=== PATIENT | female | born 1970 | race Two or more races ===

== ENCOUNTER → 2016-08-11 | Day surgery (SDC) | payer OTHER ==
[~2016-08-11] MED LIST: BUPIVACAINE HCL/PF 0.5% (5MG/ML) 10 ML VIAL ONE; DEXAMETHASONE SOD PHOSPHATE 4 MG/1 ML VIAL ONE; DEXAMETHASONE SOD PHOSPHATE/PF 10 MG/ML SDV ONE; EPINEPHrine/PF 1 MG/1 ML (1:1,000) AMPULE ONE; GLYCOPYRROLATE 0.2 MG/1 ML VIAL ONE; LIDOCAINE HCL 2% (20ML MULTI-DOSE VIAL) NR ONE; MIDAZOLAM HCL 2 MG/2 ML SINGLE DOSE VIAL ONE; NEOSTIGMINE METHYLSULFATE 0.5 MG/ML - 10 ML MDV ONE; PROPOFOL 20 ML ONE; ROCURONIUM BROMIDE 50 MG/5 ML VIAL ONE; ceFAZolin SODIUM 1 GM VIAL ONE
--- NOTE | 2016-08-13 11:34 | PATH ---
Surgical Pathology Report Patient Name: SHABBIR LIVINGSTON [facility]. Rec. #: [id number] /Age/Gender: 1970 (Age: 46) / F Account: [id number] Location: [facility] RADIOLOGY U Taken: 08/11/2016 Received: 08/11/2016 Reported: 08/13/2016 Physicians: Trinidad West M.D. Specimen(s) Received A: BREAST CORE BIOPSY LEFT 3:00, 7-8 CMFN B: BREAST CORE BIOPSY RIGHT 1:00, 9 CMFN Clinical History Suspicious Final Diagnosis A. LEFT BREAST, 3:00, 7-8 CMFN, ULTRASOUND GUIDED NEEDLE CORE BIOPSY: SCLEROSED FIBROADENOMA. B. RIGHT BREAST, 1:00, 9 CMFN, ULTRASOUND GUIDED NEEDLE CORE BIOPSY: WELL DIFFERENTIATED INVASIVE DUCTAL CARCINOMA, MEASURING BETWEEN 0.1 AND 0.2 CM IN LENGTH MEASURED ON A SLIDE. ABUNDANT CLOTTED BLOOD AND DETACHED FRAGMENTS OF EPITHELIUM PRESENT. Results of Estrogen Receptor (ER) and Progesterone Receptor (NV) studies performed on block "B" at [facility] are as follows: ER (clone [id number] mouse monoclonal antibody by [employer]): ~80% nuclear staining with moderate intensity (Positive). NV (clone16 mouse monoclonal antibody by Le[employer]) : ~60% nuclear staining with strong intensity (Positive). Assays for HER-2/bertrand and Ki67 are pending, and a report will follow. Positive and negative controls (internal if applicable) show appropriate results. Formalin fixation and cold ischemic times are within current ASCO/CAP recommendations for ER, NV and Her2 testing. Comment: Immunohistochemical stains on specimen B performed and interpreted at [facility] show the following results: P63 and smooth muscle myosin heavy chain show loss of the myoepithelial cell layer in the area of invasive carcinoma. This case was discussed with ANTONIA Maldonado of Dr. Keita office on August 13, 2016. Electronically Signed Titus Gutierrez M.D. Addendum Reported: 08/14/2016 Addendum Diagnosis Results of Her2 (IHC) & Ki-67 studies performed on block "B" at [place], [place] ([id number]) are as follows: Her2 IHC (EP3 from [employer], formerly known as [id number], using [employer]is Polymer Refine detection kit): 1+ Negative Ki-67: ~10% (Low proliferative index) Positive and negative controls (internal if applicable) show appropriate results. Titus Gutierrez M.D. Gross Description A. Received in formalin labeled "left breast 3:00, 7-8cmfn," are six oneil-yellow, irregular to cylindrical portions of fibroadipose tissue ranging from 0.5-1.3 cm in length and averaging 0.2 cm in diameter. The specimen is submitted in toto in one cassette. B. Received in formalin labeled "right breast 1:00, 9cmfn," is a 2.5 x 2.2 x 0.3 cm aggregate of multiple oneil-yellow, irregular to cylindrical portions of fibroadipose tissue admixed with blood clot. The specimen is submitted in toto in one cassette. Time to formalin fixation: 2 minutes Total formalin fixation time: Approximately 7 hours 08/11/2016
== END | disposition home or self-care (01) ==
LOC: FRADUS-SUR 12:39
PROVIDERS: ATTEND Surgery
PROC: 0HBV3ZX Excision of Bilateral Breast, Percutaneous Approach, Diagnostic (ICD-10-PCS; principal; 2016-08-11)
DX: N63 Unspecified lump in breast (principal); C50.211 Malignant neoplasm of upper-inner quadrant of right female breast; D24.2 Benign neoplasm of left breast
CPT/HCPCS: 19083; 76641-TC-RT; 76642-TC-RT; 87899; 88305-TC; 88341-TC; 88342-TC; A4648; G0204-TC

== ENCOUNTER 2016-09-29 06:26 | Inpatient (IN) | payer OTHER ==
[2016-09-25 13:27] VITALS: BMI 34.5
[2016-09-29] MEDS ORDERED: METHYLENE BLUE 1% 10 MG/1 ML VIAL NR ONE ×2 (09:15→10:15)
[2016-09-29] MEDS ORDERED: ceFAZolin SODIUM 1 GM VIAL IVPB ONE (09:18)
--- NOTE | 2016-09-29 13:40 | OP ---
Operative Note - Note: Operative Date: 09/29/16 Pre-Operative Diagnosis: Right Breast Cancer Operation: Bilateral Breast Staged Reconstruction with Nipple Delay at time of Right Lumpectomy and [place] Node Biopsy Post-Operative Diagnosis: Same as Pre-op Surgeon: J Luis Burciaga Horticulture Instructor: Caroline Duong Anesthesia: General Drains & Tubes with Location: BREANNA Drain x1 Each Side Operative Report Dictated: Yes
[2016-09-29] MEDS ORDERED: oxyCODONE HCL 5 MG TABLET PO PRN (13:45)
[2016-09-29] MEDS ORDERED: ONDANSETRON 4 MG/2 ML VIAL IVPUSH PRN (13:45)
[2016-09-29] MEDS ORDERED: LACTATED RINGERS SOLUTION 1,000 ML IV SCH (13:45)
[2016-09-29] MEDS ORDERED: oxyCODONE HCL 5 MG TABLET ONE (16:16)
[2016-09-29 17:56] VITALS: BP 111/62
[2016-09-29 18:14] VITALS: PULSE 80; TEMP 97.8
--- NOTE | 2016-09-30 11:34 | OP ---
DATE OF OPERATION: 09/29/2016 PREOPERATIVE DIAGNOSIS: Right breast cancer. POSTOPERATIVE DIAGNOSIS: Right breast cancer. PROCEDURE: Right breast wide lumpectomy and sentinel node biopsy and left staged nipple sparing mastectomy. SURGEON: Caroline Streeter MD ANESTHESIA: General and paravertebral block. FORGING PRESS SETTER UP: J Luis Burciaga MD ESTIMATED BLOOD LOSS: 100 mL. DRAINS: None. COMPLICATIONS: None. This was a sterile procedure. INDICATION FOR PROCEDURE: Patient presented with a palpable mass in the upper right breast. She had imaging that noted the main mass as well as 1 slightly medial to this. She also had an abnormality in the left breast, which was biopsied. It was benign. We had a discussion regarding her treatment, and decision was to go ahead with a nipple-sparing mastectomy, but given the ptosis, the plastic surgeon felt that this would have to be a staged mastectomy, and at the time of the first part where anteriorly the breast is taken off the skin I would remove a mass in the upper right breast as well as do a sentinel node biopsy. The procedure was discussed with all of the questions answered. PROCEDURE IN DETAIL: The patient was brought to [facility] in [place] and taken on to nuclear medicine where a technetium and sulfur colloid was injected as an intradermal injection at the right 12 o'clock areolar border by the nuclear reactor technician. She was then brought to the operating room. After paravertebral block bilaterally as well as induction of general anesthesia, both breasts and axilla were prepped and draped in the usual sterile fashion. Then 2.5 mL of Methylene blue dye with 2.5 mL of injectable saline was then injected into the right subaerolar plexus by me in the operating room. The breast was then massaged for 5 minutes. The area was prepped and draped in the usual sterile fashion. A 4-cm incision was made in the right axilla and carried down through the clavipectoral fascia to identify a hot and blue lymph node. This was sent as sentinel lymph node number 1 hot and blue. There was a 2nd sentinel lymph node that was blue but not hot and sent as a sentinel node number 2 blue not hot. There was a 3, which might have been actually blue lymphatic. Had removed that and had no counts; therefore, I sent it as right nonsentinel node. I am not sure there is really a lymph node in it or just fat. Next, there was a 3rd sentinel node lymph node noted that was also blue and hot. There was no other blue dye radioactivity or pathologic appearing lymph nodes in the right axilla; therefore, once hemostasis was assured, the right mastectomy performed through the incision that was marked out by Dr. Burciaga. Superior flaps through the superior incision and inferior flaps through the inferior incision was made with lips of skin left. The nipple was preserved as well. I did take some tissue behind the right nipple and sent it as tissue behind the right nipple for pathologic analysis. I removed the entire mass tagged with a long stitch lateral short stitch superior sent to Pathology for permanent section, I found some grittiness medial to this, so I took a new medial margin with a long stitch lateral short stitch superior. Once the breast was completely mobilized off anteriorly from the skin, I left the breast intact. I did put a stitch in the right breast 12 o'clock location where I felt that the tumor was closest to the skin in case I have to excise skin in the future. Next, gloves and instruments were changed, and the left staged mastectomy was performed. Again, the same incision marked out by Dr. Burciaga was incised sharply, and superior flaps were raised through the superior incision and the inferior flaps through the inferior incision to preserve the nipple areolar complex. I left an ellipse of skin over the entire breast wounds anteriorly. The breast was taken off the skin. It was then left intact on the pectoralis muscle. The patient was then left with Dr. Burciaga to finish his part of the operation. At the end of the procedure, she was left with Dr. Burciaga to close up the incisions. She tolerated the procedure well. CAROLINE STREETER M.D. [id number]
--- NOTE | 2016-09-30 14:05 | OP ---
DATE OF OPERATION: 09/29/2016 PREOPERATIVE DIAGNOSIS: Right breast cancer. POSTOPERATIVE DIAGNOSIS: Right breast cancer. PROCEDURE PERFORMED: Bilateral breast staged reconstruction with nipple delay at time of right lumpectomy/sentinel node biopsy. SURGEON: J Luis Patrick MD MANAGER CHANNEL: Caroline Duong MD ANESTHESIA: General. BRIEF HISTORY: The patient is a 46-year-old female who has a right upper pole breast mass. The patient is a D-cup breast and is moderately ptotic and traditionally not a candidate for a nipple-sparing mastectomy. The patient is insistent about attempting a nipple-sparing technique, so it was elected to perform a nipple-delayed procedure through an upper pole keyhole pattern. This delayed procedure will hopefully increase the vascularity to the nipple-areolar complex and will allow a nipple-sparing mastectomy to be performed more safely after the delayed period. PROCEDURE: The patient was on the operating room table in the supine position and anesthesia was administered by the anesthesiologist. The right sentinel node dissection was performed by Dr. Duong and dictated separately. A keyhole pattern was designed with the patient in the standing position several days prior to surgery. This pattern was now used as a guide for surgery. The incisions in the upper pole of the breast were made as marked, including a semicircular incision about the upper pole of the right areola. The skin paddle was left attached to skin and the skin flap was freed from the underlying breast tissue both superior and inferior to the skin paddle. The inferior skin flap included the nipple-areolar complex which essentially makes this dissection the anterior portion of the mastectomy. The inferior portion of the areola remained attached to the inferior skin flap. Dr. Duong performed a lumpectomy by removing the tumor area in the superior pole and this area was closed with 3-0 Biosyn suture internally. A Feliciano-Alvarez drain was then inserted underneath the skin flap and a layered closure was performed, reclosing the skin paddle as designed. Layered closure consisted of a deep layer of 3-0 Biosyn suture in an interrupted buried fashion and an intradermal layer of 4-0 Prolene was used for skin. Several 4-0 and 5-0 nylon sutures were used to further reinforce the skin closure. A similar procedure was performed on the left side, although there was no biopsy performed and no sentinel node biopsy performed. The skin paddle was closed in a similar fashion. A Feliciano-Alvarez drain was used on this side, as well, and the Feliciano-Alvarez drains were sutured with 2-0 silk suture. The right axillary wound was closed in a layered fashion, deep tissues with a number 3-0 Biosyn suture in an interrupted buried fashion and the skin with several 4-0 nylon sutures in simple interrupted fashion. All wounds were then secured with Steri-Strips and sterile dressings were applied and secured with a surgical bra. The patient was then awoken from anesthesia without any difficulty, and taken from the operating room to the recovery room in satisfactory condition, having tolerated the procedure well. J LUIS PATRICK M.D. /[id number]
--- NOTE | 2016-10-01 11:52 | PATH ---
Surgical Pathology Report Patient Name: SHABBIR LIVINGSTON [facility]. Rec. #: [id number] /Age/Gender: 1970 (Age: 46) / F Account: [id number] Location: [facility] Taken: 09/29/2016 Received: 09/29/2016 Reported: 10/01/2016 Physicians: Caroline Duong M.D. Specimen(s) Received A: RIGHT AXILLARY SENTINEL LYMPH NODE #1 B: RIGHT AXILLARY SENTINEL LYMPH NODE #2 C: RIGHT AXILLARY NON-SENTINEL LYMPH NODE D: RIGHT AXILLARY SENTINEL LYMPH NODE #3 E: RIGHT BREAST LUMPECTOMY F: RIGTH BREAST NEW MEDIAL MARGIN G: TISSUE BEHIND RIGHT NIPPLE Clinical History Right breast cancer Final Diagnosis A. SENTINEL LYMPH NODE #1, RIGHT AXILLARY, BIOPSY: ONE OF THREE LYMPH NODES POSITIVE FOR METASTATIC CARCINOMA BY H&E AND AE1/AE3 KERATIN IMMUNOSTAIN (1/3). SIZE OF THE TUMOR DEPOSIT: 1.0 MM (MICROMETASTATIS). EXTRANODAL EXTENSION: NOT IDENTIFIED. B. SENTINEL LYMPH NODE #2, RIGHT AXILLARY, BIOPSY: ONE LYMPH NODE NEGATIVE FOR METASTATIC CARCINOMA BY H&E STAIN (0/1). C. NON-SENTINEL LYMPH NODE, RIGHT AXILLARY, LYMPHADENECTOMY: BENIGN FATTY TISSUE; NO LYMPHOID TISSUE IDENTIFIED. D. SENTINEL LYMPH NODE #3, RIGHT AXILLARY, BIOPSY: ONE LYMPH NODE NEGATIVE FOR METASTATIC CARCINOMA BY H&E STAIN (0/1). E. BREAST, RIGHT, LUMPECTOMY: INVASIVE DUCTAL CARCINOMA, MODERATELY DIFFERENTIATED (LORENE HISTOLOGIC SCORE OF 6: TUBULE FORMATION 2 OF 3, NUCLEAR PLEOMORPHISM 3 OF 3, MITOTIC RATE 1 OF 3). TUMOR FOCALITY AND SIZE: SINGLE FOCUS, 1.7 CM. LOBULAR CARCINOMA IN SITU (LCIS), CLASSICAL TYPE. SURGICAL RESECTION MARGINS: NEGATIVE FOR CARCINOMA, CLOSEST RESECTION MARGIN (DEEP) 0.4 CM AWAY FROM INVASIVE CARCINOMA. ASSOCIATED PRIOR BIOPSY SITE PRESENT. LYMPHOVASCULAR INVASION: IDENTIFIED. SURROUNDING BREAST TISSUE: FIBROCYSTIC CHANGE WITH FOCAL PAPILLARY DUCTAL HYPERPLASIA, ADENOSIS, COLUMNAR CELL CHANGE, DUCT DILATATION AND STROMAL FIBROSIS WITH ASSOCIATED MICROCALCIFICATIONS. PATHOLOGIC STAGING: pT1c pN1(mi)(sn) (ALSO REFER TO CHECKLIST BELOW). RECEPTOR STATUS: REFER TO CHECKLIST BELOW. Comment: Immunohistochemical stain for E-Cadherin performed and interpreted [facility] [place] on block E1 shows invasive carcinoma is strongly positive for E-Cadherin and foci of LCIS staining negatively for E-Cadherin, supporting ductal phenotype in invasive carcinoma and lobular phenotype in LCIS. F. BREAST, RIGHT, NEW MEDIAL MARGIN, EXCISION: LOBULAR CARCINOMA IN SITU (LCIS), CLASSICAL TYPE. COMPLEX SCLEROSING LESION, FOCALLY INVOLVED BY LCIS. INTRADUCTAL PAPILLOMA WITH USUAL DUCTAL HYPERPLASIA. FIBROCYSTIC CHANGES USUAL DUCTAL HYPERPLASIA, ADENOSIS, COLUMNAR CELL CHANGE AND STROMAL FIBROSIS WITH ASSOCIATED MICROCALCIFICATIONS. NEGATIVE FOR INVASIVE CARCINOMA. Comment: Immunohistochemical stain for E-Cadherin performed and interpreted [facility] [place] on block F5 shows foci of LCIS being negative for E-Cadherin supporting lobular phenotype. Immunohistochemical stains for p63 and SMM-HC performed and interpreted at [facility] [place] on block F5 show preserved myoepithelial cells in the complex sclerosing lesion. G. TISSUE BEHIND RIGHT NIPPLE: BENIGN BREAST TISSUE. Comments Breast Invasive Carcinoma: Surgical Pathology Cancer Case Summary Based on AJCC/UICC TNM, 7th edition Procedure _x_ Excision without image-guided localization Lymph Node Sampling _x_ [place] lymph nodes Specimen Laterality _x_ Right Tumor Size: Size of Largest Invasive Carcinoma Greatest dimension of largest focus of invasion over 1 mm: 1.7 cm (17 mm) Tumor Focality _x_ Single focus of invasive carcinoma Macroscopic and Microscopic Extent of Tumor Skin _x_ No skin present Nipple _x_ Not applicable (excisions less than total mastectomy) Skeletal Muscle _x_ No skeletal muscle present Ductal Carcinoma In Situ (DCIS) _x_ No DCIS is present Lobular Carcinoma In Situ (LCIS) _x_ LCIS is present, classical type Histologic Type of Invasive Carcinoma: _x_ Invasive carcinoma of no special type (ductal, not otherwise specified) Histologic Grade: (Sedan Histologic Score) Tubular Differentiation _x_ Score 2 Nuclear Pleomorphism _x_ Score 3 Mitotic Rate _x_ Score 1 Overall Grade _x_ Grade 2: scores of 6 (moderately differentiated) Margins _x_ Margins uninvolved by invasive carcinoma Distance from closest margin: 4.0 mm Specify margin: deep Lymph-Vascular Invasion _x_ Present Lymph Nodes Total number of lymph nodes examined (sentinel and nonsentinel): 5 Number of sentinel lymph nodes examined: 5 Number of lymph nodes with macrometastases (> 2 mm): 0 Number of lymph nodes with micrometastases (>0.2 mm to 2 mm and/or >200cells):1 Number of lymph nodes with isolated tumor cells (=0.2 mm and =200 cells): 0 Size of largest metastatic deposit (if present): 1 mm Extranodal Extension _x_ Not identified Pathologic Staging (pTNM) Primary Tumor (Invasive Carcinoma): pT1c Regional Lymph Nodes (pN): pN1(mi)(sn) Distant Metastasis (pM): not applicable Biomarker Studies Results of ER and NM studies performed on prior biopsy (D1) block B at [facility] [place] are as follows: ER (clone 6F11 mouse monoclonal antibody by [employer]): ~80% nuclear staining with moderate intensity (Positive). NM (clone16 mouse monoclonal antibody by [employer]): ~60% nuclear staining with strong intensity (Positive). Results of Her2 (IHC) & Ki-67 studies performed on prior biopsy (D1, B) at [place], [place] ( [id number]) are as follows: Her2 IHC (EP3 from [employer], formerly known as [id number], using [employer]is Polymer Refine detection kit): 1+ (Negative) Ki67: ~10% (Low proliferation index) Positive and negative controls (internal if applicable) showed appropriate results. Formalin fixation and cold ischemic times were within current ASCO/CAP recommendations for ER, NM and Her2 testing. Electronically Signed Mike Littlejohn M.D. Gross Description A. Received in formalin labeled "right axillary sentinel lymph node #1" are 3 oneil-blue, irregular lymph nodes ranging from 0.4 x 0.3 x 0.3 cm to 1.4 x 1.0 x 0.6 cm. The specimens are bisected and entirely submitted in 3 cassettes as follows: 1-3-one whole bisected lymph node each. B. Received in formalin labeled "right axillary sentinel lymph node #2" is a 0.6 cm in greatest dimension possible lymph node. The specimen is submitted in toto in one cassette. C. Received in formalin labeled "axillary non-sentinel node" is a 1.4 x 1.0 x 0.3 cm aggregate of soft tissue fragments, possibly containing a lymph node. The specimen is entirely submitted in one cassette. D. Received in formalin labeled "axillary sentinel lymph node #3" is a 0.9 x 0.6 x 0.4 cm irregular lymph node with attached fat. The specimen is bisected and entirely submitted in one cassette. E. Received in formalin, labeled "right breast lumpectomy" is a 6.3 x 5.0 x 3.3 cm. oneil-yellow, irregular, portion of fibroadipose tissue. There is no needle localization wire present. There is a short suture marking the superior aspect and a long suture marking the lateral aspect, per the surgeon. There is no skin or nipple present. The specimen is inked as follows: superior and lateral blue; inferior green; medial yellow; anterior red; deep black. The specimen is serially sectioned from superior to inferior. Sectioning reveals a 1.4 x 1.0 x 1.0 cm oneil, indurated mass at 0.6 cm from the anterior margin, 0.6 cm from the deep margin and 0.8 cm from the lateral margin. The remaining margins appear clear of the mass. There is a harper metallic biopsy clip identified within the mass. Filter Press Pumper sections are submitted in 6 cassettes as follows: 1-full face section of mass with anterior and deep margins; 2-mass with lateral margin; 3-mass with deep and lateral margins; 4-medial margin; 5-superior margin; 6-inferior margin. Time to fixation: <1h Total formalin fixation time: ~ 6h F. Received in formalin labeled "right breast new medial margin" is a 6.2 x 4.4 x 2.0 cm irregular portion of fibroadipose tissue with a short suture marking the superior aspect and a long suture marking the lateral aspect of the specimen, per the surgeon. There is no skin present. The specimen is inked as follows: Superior blue; inferior green; anterior and lateral red; medial yellow; deep black. The specimen is serially sectioned from anterior to deep. Sectioning reveals abundant dense, white, focally firm fibrous tissue. Filter Press Pumper sections are submitted in 11 cassettes as follows: 1-7-fibrous tissue sequentially submitted from anterior to deep (each section displays medial and lateral margins); 8-anterior margin; 9-deep margin; 10-superior margin; 11-inferior margin. G. Received in formalin labeled "tissue behind right nipple" are 2 fragments of fibroadipose tissue measuring 0.7 and 1.2 cm in greatest dimension. The specimens are submitted in toto in one cassette. 09/29/201609/29/2016
== END 2016-09-29 18:15 | disposition home or self-care (01) | DRG 363 ==
LOC: JSAMEDAYSX 06:26
PROVIDERS: ADMIT Surgery; ATTEND Surgery
PROC: 0HRV37Z Replacement of Bilateral Breast with Autologous Tissue Substitute, Percutaneous Approach (ICD-10-PCS; 2016-09-29)
PROC: 0HBT0ZZ Excision of Right Breast, Open Approach (ICD-10-PCS; principal; 2016-09-29 09:00)
PROC: 07B50ZX Excision of Right Axillary Lymphatic, Open Approach, Diagnostic (ICD-10-PCS; 2016-09-29 09:00)
PROC: 0HBU0ZZ Excision of Left Breast, Open Approach (ICD-10-PCS; 2016-09-29 09:00)
PROC: 07B60ZX Excision of Left Axillary Lymphatic, Open Approach, Diagnostic (ICD-10-PCS; 2016-09-29 09:00)
DX: C50.811 Malignant neoplasm of overlapping sites of right female breast (principal); C77.3 Secondary and unspecified malignant neoplasm of axilla and upper limb lymph nodes
CPT/HCPCS: 78195-TC; 84703; 88305-TC; 88307-TC; 88341-TC; 94760; A9541

== ENCOUNTER 2017-02-26 06:33 | Day surgery (SDC) | payer OTHER ==
[2017-02-24 08:59] VITALS: BMI 36.0
[2017-02-26] MEDS ORDERED: ROCURONIUM BROMIDE 50 MG/5 ML VIAL ONE (07:36)
[2017-02-26] MEDS ORDERED: ROPIVACAINE HCL 0.5% 30ML VIAL ONE (07:36)
[2017-02-26] MEDS ORDERED: DEXAMETHASONE SOD PHOSPHATE/PF 10 MG/ML SDV ONE (07:36)
[2017-02-26] MEDS ORDERED: fentaNYL CITRATE 250 MCG/5 ML VIAL ONE (07:36)
[2017-02-26] MEDS ORDERED: PROPOFOL 20 ML ONE ×2 (07:36→10:39)
[2017-02-26] MEDS ORDERED: MIDAZOLAM HCL 2 MG/2 ML SINGLE DOSE VIAL ONE ×2 (07:37)
[2017-02-26] MEDS ORDERED: LIDOCAINE HCL 1%, 10 MG/ML (20ML VIAL) ONE (07:54)
[2017-02-26] MEDS ORDERED: ONDANSETRON 4 MG/2 ML VIAL ONE ×2 (08:40→12:40)
[2017-02-26] MEDS ORDERED: ceFAZolin SODIUM 1 GM VIAL ONE ×2 (08:40→12:40)
[2017-02-26] MEDS ORDERED: ceFAZolin SODIUM 1 GM VIAL IVPB ONE (08:44)
--- NOTE | 2017-02-26 12:47 | OP ---
DATE OF OPERATION: 02/26/2017 PREOPERATIVE DIAGNOSIS: Right breast cancer. POSTOPERATIVE DIAGNOSIS: Right breast cancer. PROCEDURE: Bilateral total nipple-sparing mastectomy. SURGEON: Caroline Streeter MD GARDENER FLORIST: J Luis Burciaga MD ESTIMATED BLOOD LOSS: 100 mL. DRAINS: None. COMPLICATIONS: None. This was a sterile procedure. INDICATIONS: Patient had a staged mastectomy with an anterior margin of the mastectomy bilaterally was removed from the skin. The tumor in the right upper outer right breast was removed as a lumpectomy as well as a sentinel node that was performed. This showed adequate margins and the lymph nodes were negative. The patient now comes back for a completion bilateral mastectomy with reconstruction. PROCEDURE IN DETAIL: Patient was brought to [facility] in [place] and taken into the operating room, and after induction of general anesthesia and IV antibiotics, both breasts were prepped and draped in the usual sterile fashion. First, the right mastectomy was performed. A 10-blade was used to make an incision just beyond a hypertrophic scar on the right. Superior, inferior, medial, and lateral flaps were raised, the nipple was preserved, and the breast was reflected off the pectoralis muscle, tagged with a long stitch at the lateral edge of skin and a short stitch at the nipple end of mastectomy. This was sent to Pathology for permanent section. Next a left mastectomy was performed. An incision was made to include the hypertrophic scar in the skin paddle in the center of the left breast, and superior, inferior, medial, and lateral flaps were raised, and the breast was reflected off the pectoralis muscle, the nipple was again preserved. This was tagged with a long stitch at the lateral edge of skin and a short stitch at the nipple end and sent to Pathology for permanent section. Hemostasis was assured with electrocautery. She tolerated the procedure well. The patient was then left with Dr. Burciaga to finish the reconstruction part of the procedure. CAROLINE STREETER M.D. [id number]
--- NOTE | 2017-02-26 13:09 | OP ---
Operative Note - Note: Operative Date: 02/26/17 Pre-Operative Diagnosis: Acquired Absence of Breasts s/p Bilateral Nipple- Sparing Mastectomies Operation: Bilateral Immediate Breast Reconstruction with Placement of Subglandular Implants Wrapped in Alloderm. Implants: [place] Memoryshape Gel Medium Height High Profile 555cc Post-Operative Diagnosis: Same as Pre-op Surgeon: J Luis Burciaga Manager Industrial: Matilde Rodriguez Anesthesiologist/DYER HELPER: Price Anne Anesthesia: General Drains & Tubes with Location: BREANNA Drain 19F x1 each side Fluid Volume Replaced (mls): 1,500 Operative Report Dictated: Yes
--- NOTE | 2017-02-26 13:13 | SURG ---
Surgery Dining Room Host Note Dining Room Host: Matilde Rodriguez PA-C Date of Service: 02/26/17 Diagnosis: s/p bilateral nipple sparing mastectomy Procedure: Bilateral immediate reconstruction with placement of subglandular implants with alloderm. I was present for the entirety of the operative procedure. For further detail, please refer to operative report. Visit type - Case Type Case Type: Scheduled Admission - Emergency Emergency Visit: No - New patient This patient is new to me today: Yes Date on this admission: 02/26/17
[2017-02-26] MEDS ORDERED: ONDANSETRON 4 MG/2 ML VIAL IVPUSH PRN (13:17)
--- NOTE | 2017-02-26 13:59 | OP ---
DATE OF OPERATION: 02/26/2017 PREOPERATIVE DIAGNOSIS: Acquired absence of breasts, status post bilateral nipple-sparing mastectomies. POSTOPERATIVE DIAGNOSIS: Acquired absence of breasts, status post bilateral nipple-sparing mastectomies. PROCEDURES PERFORMED: Bilateral immediate breast reconstructions with placement of subglandular implants wrapped in AlloDerm. SURGEON: J Luis Burciaga MD ON SITE WASTEWATER SYSTEMS TECHNICIAN: ANTONIA Desouza ANESTHESIA: General with intercostal blocks. HISTORY: The patient is status post bilateral nipple-sparing mastectomy delays, which were performed approximately 6 months ago using a keyhole pattern in the superior chest, locating the nipple-areolar complex at the level, after the proposed mastectomy and reconstructions to then be performed. The keyhole pattern has healed well with hypertrophic scars and now will be excised as access for her mastectomies. The patient was marked 1 day prior to surgery in the standing position and is now on the operating table at the conclusion of bilateral nipple-sparing mastectomies performed by Dr. Duong. The right breast reconstruction was addressed, first. The mastectomy defect was resized to the proper base to accommodate proposed reconstruction with implants that were selected as [place] MemoryShape implants, which were medium height, high-profile implants, 555 cc in size. The implant was opened on a separate back table and two sheets of medium size perforated AlloDerm were used to wrap around the anterior surface of the implant and around to a portion of the posterior surface. The remaining posterior surface was secured using 2-0 Vicryl sutures bowstrung across the back of the implant. The AlloDerm was sutured in place and ovolxxw-ac-bgsr anteriorly using 2-0 Vicryl suture in interrupted fashion. The right mastectomy pocket was irrigated with a dilute solution of Betadine and the implant was placed and inset. The superior and inferior flaps were then draped over the implant and the wound was tacked closed in several places. The operating table was moved into the sitting position to confirm correct implant position and correct skin drape over the implant. The patient was then moved back to the supine position for closure. A 19-[place], round Feliciano-Alvarez drain was inserted using a trocar in the anterior axillary line at the level of the inframammary fold and sutured in place with a 2-0 silk suture. This was directed superiorly towards the axilla and around the superior aspect of the implant, after being rehgmyu-[id number]. The wound was then closed in layered fashion, being careful to inset the nipple into the keyhole pattern as designed. Closure was performed in layered fashion with deep tissues closed with number 3-0 and 4-0 Biosyn suture in interrupted buried fashion and skin closed with 4-0 V-Loc 90 suture in a continuous intradermal fashion with several 4-0 nylon simple sutures used laterally. A similar procedure was performed on the left breast. All wounds were further secured with Steri-Strips and good nipple viability was appreciated at the conclusion of the procedure. Sterile dressings were then applied, consisting of Kerlix, gauze, and multiple combined pads were used laterally to restrict the lateral portion of the breasts to prevent any early postoperative motion. Of note, prior to closure, the AlloDerm was sutured in multiple places to the anterior aspect of the pectoralis major muscle to prevent any early postoperative shift in the implant. The patient was then awoken from anesthesia without any difficulty, and she was taken from the operating room to the recovery room in satisfactory condition, having tolerated the procedure well. [place] [id number] CC: Caroline Duong MD
[2017-02-26] MEDS ORDERED: ACETAMINOPHEN 325 MG TABLET (FP) PO PRN ×3 (15:23→15:25)
[2017-02-26] MEDS ORDERED: oxyCODONE HCL 5 MG TABLET PO PRN ×3 (15:23→15:25)
[2017-02-26] MEDS: LACTATED RINGERS SOLUTION 1,000 ML IV SCH (16:05)
[2017-02-26] MEDS: ACETAMINOPHEN 325 MG TABLET (FP) PO PRN (17:24)
[2017-02-26] MEDS: oxyCODONE HCL 5 MG TABLET PO PRN (17:26)
[2017-02-26] MEDS ORDERED: CEFAZOLIN 1 GM in DEXTROSE 5%-WATER - 50 ML IVPB SCH (21:00)
[2017-02-26] MEDS ORDERED: CEFAZOLIN 1 GM PUSH 1 GM/10 ML DISP.SYRIN IVPUSH SCH ×2 (21:15→22:02)
[2017-02-27] MEDS: oxyCODONE HCL 5 MG TABLET PO PRN (01:56)
[2017-02-27] MEDS: ACETAMINOPHEN 325 MG TABLET (FP) PO PRN ×2 (01:57→16:19)
[2017-02-27] MEDS: LACTATED RINGERS SOLUTION 1,000 ML IV SCH (01:57)
[2017-02-27] MEDS ORDERED: CEFAZOLIN 1 GM PUSH 1 GM/10 ML DISP.SYRIN IVPUSH SCH (06:00)
[2017-02-27 06:44] VITALS: TEMP 98.5
[2017-02-27] MEDS ORDERED: LEVOTHYROXINE NA 125 MCG TABLET (FP) PO SCH (07:00)
[2017-02-27] MEDS ORDERED: CHOLECALCIFEROL (VITAMIN D3) 1,000 UNIT TABLET (FP) PO SCH (10:00)
[2017-02-27 15:15] VITALS: BP 114/67; PULSE 76
[2017-02-27] MEDS ORDERED: DOCUSATE SODIUM 100 MG CAPSULE (FP) PO SCH (15:30)
--- NOTE | 2017-02-27 15:30 | PN ---
Progress Note (short form) - Note Progress Note: Afebrile Wounds clean and dry. Right nipple/areola viable, Left superior areola with slight ischemic changes. Drains functioning with modest drainage- instructed in outpatient care. Plan: Discharge home. Followup in office Thursday.
--- NOTE | 2017-03-04 15:41 | PATH ---
Surgical Pathology Report Patient Name: SHABBIR LIVINGSTON [facility]. Rec. #: [id number] /Age/Gender: 1970 (Age: 46) / F Account: <[id number]> Location: [facility]SU Taken: 02/26/2017 Received: 02/26/2017 Reported: 03/04/2017 Physicians: Caroline Duong M.D. Specimen(s) Received A: RIGHT BREAST, MASTECTOMY LONG STITCH FOWLER LATERAL EDGE OF SKIN SHORT STITCH FOWLER NIPPLE B: LEFT BREAST, MASTECTOMY LONG STITCH LATERAL EDGE OF SKIN SHORT STITCH IS NIPPLE Clinical History Right breast cancer status post lumpectomy and sentinel lymph node biopsy Final Diagnosis A. BREAST, RIGHT, MASTECTOMY: BENIGN BREAST TISSUE WITH FLORID USUAL DUCTAL HYPERPLASIA INVOLVING MULTIPLE COMPLEX SCLEROSING LESIONS AND ADENOSIS. REMAINDER OF THE BREAST TISSUE SHOWS FIBROCYSTIC AND FIBROADENOMATOID CHANGES INCLUDING STROMAL FIBROSIS, CYST FORMATION, APOCRINE METAPLASIA, COLUMNAR CELL CHANGE, AND MICROCALCIFICATIONS WITHIN BENIGN DUCTS. SKIN WITHOUT SIGNIFICANT PATHOLOGIC FINDINGS. PRIOR BIOPSY SITE CHANGES PRESENT. SEE COMMENT. B. BREAST, LEFT, MASTECTOMY: BENIGN BREAST TISSUE WITH RADIAL SCAR, SMALL PAPILLOMA, AND FLORID USUAL DUCTAL HYPERPLASIA INVOLVING ADENOSIS. REMAINDER OF THE BREAST TISSUE SHOWS FIBROADENOMATOID AND FIBROCYSTIC CHANGES INCLUDING STROMAL FIBROSIS, CYST FORMATION, APOCRINE METAPLASIA, COLUMNAR CELL CHANGE, AND MICROCALCIFICATIONS WITHIN BENIGN DUCTS. SKIN WITHOUT SIGNIFICANT PATHOLOGIC FINDINGS. PRIOR BIOPSY SITE CHANGES PRESENT. SEE COMMENT. Comment: Immunohistochemical stains performed and interpreted at [facility] for p63 and smooth muscle myosin heavy chain shows preserved myoepithelial cells in the complex sclerosing lesions, radial scar and adenosis. E-cadherin was utilized to evaluate this case. Electronically Signed Mamie Osborne M.D. Gross Description A. Received in formalin, labeled "right mastectomy," is a 1291 gram, 18.5 x 16.5 x 6.7 cm. right mastectomy specimen with a short suture marking the area of the nipple and a long suture marking the lateral edge of the skin, per the surgeon. The anterior surface displays a 16.5 x 4.5 cm oneil, elliptical portion of skin. There is no nipple present. The deep margin is inked black and the anterior soft tissue margin is inked blue. The specimen is serially sectioned from lateral to medial. Sectioning reveals a focus of firm fibrous tissue in the upper outer quadrant (UOQ), possibly consistent with a well healed previous biopsy cavity. No residual mass is identified. There is a 1.6 x 1.2 x 0.8 cm pink-oneil, rubbery nodule in the lower outer quadrant (LOQ). The remaining breast parenchyma displays abundant dense, white, focally firm fibrocystic tissue. Surplus Property Disposal Agent sections are submitted in 18 cassettes as follows: 1-sections from site of nipple with anterior soft tissue margin; 2-7-UOQ previous biopsy site; 8-uninvolved UOQ tissue; 9-10-LOQ nodule; 11-uninvolved LOQ tissue; 12-13-upper inner quadrant; 14-lower inner quadrant; 46-94-jiisowhf soft tissue margin; 17-skin; 18-deep margin. B. Received in formalin, labeled "left breast mastectomy," is a 1346 gram, 19.5 x 17.0 x 7.2 cm. left mastectomy specimen with a short suture marking the area of the nipple and a long suture marking the lateral edge of the skin, per the surgeon. The anterior surface displays a 17.5 x 6.5 cm oneil, elliptical portion of skin. There is no nipple present. The deep margin is inked black and the anterior soft tissue margin is inked blue. The specimen is serially sectioned from medial to lateral. Sectioning reveals a 2.3 x 1.5 x 1.2 cm rubbery mass in the lower outer quadrant (LOQ). The remaining breast parenchyma displays abundant dense, white, fibrocystic tissue. Surplus Property Disposal Agent sections are submitted in 16 cassettes as follows: 1-4-LOQ mass; 4-3-bjprovtilj LOQ tissue; 7-8-upper outer quadrant; 9-10-upper inner quadrant; 11-12-lower inner quadrant; 58-31-fdiuzxug from site of nipple with anterior soft tissue margin; 15-skin; 16-deep margin. Total formalin fixation time: Approximately 24 hours. 02/27/201702/27/2017
== END 2017-02-27 17:51 | disposition home or self-care (01) | DRG 362 ==
LOC: UNDOADMIN 06:33 → JSAMEDAYSX 06:33 → JASUSAT 06:33 → EDSTATUS 08:00 → JSAMEDAYSX 16:37 → J6S 16:37 → JASUSAT 02-27 17:51 → UNDODISIN 02-27 17:51
PROVIDERS: ATTEND Surgery
PROC: 0HRV0JZ Replacement of Bilateral Breast with Synthetic Substitute, Open Approach (ICD-10-PCS; principal; 2017-02-26 08:00)
PROC: 0HUV0JZ Supplement Bilateral Breast with Synthetic Substitute, Open Approach (ICD-10-PCS; 2017-02-26 08:00)
DX: C50.411 Malignant neoplasm of upper-outer quadrant of right female breast (principal)
CPT/HCPCS: 84703; 86850; 86900; 86901; 88307-TC; 88341-TC; 94760

== ENCOUNTER 2017-08-27 05:16 | Day surgery (SDC) | payer OTHER ==
[2017-08-25 19:08] VITALS: BMI 36.6
[2017-08-27] MEDS ORDERED: MIDAZOLAM HCL 2 MG/2 ML SINGLE DOSE VIAL ONE ×2 (07:55)
[2017-08-27] MEDS ORDERED: PROPOFOL 20 ML ONE ×2 (07:56→09:29)
[2017-08-27] MEDS ORDERED: SUCCINYLCHOLINE CHLORIDE 200 MG/10 ML VIAL ONE (07:56)
[2017-08-27] MEDS ORDERED: ROCURONIUM BROMIDE 50 MG/5 ML VIAL ONE (08:07)
[2017-08-27] MEDS ORDERED: ceFAZolin SODIUM 1 GM VIAL IVPB ONE (08:15)
[2017-08-27] MEDS ORDERED: PROMETHAZINE HCL 25 MG/1 ML VIAL IVPUSH PRN (10:01)
[2017-08-27] MEDS ORDERED: ONDANSETRON 4 MG/2 ML VIAL IVPUSH PRN (10:01)
[2017-08-27] MEDS ORDERED: oxyCODONE HCL 5 MG TABLET PO PRN (10:01)
[2017-08-27] MEDS ORDERED: LACTATED RINGERS SOLUTION 1,000 ML IV SCH (10:15)
--- NOTE | 2017-08-27 10:50 | OP ---
Operative Note - Note: Operative Date: 08/27/17 Pre-Operative Diagnosis: Patient Dissatisfaction with Breast Shape after Breast Reconstruction Operation: Bilateral Breast Reconstruction Revision, Exchange of Breast Prostheses, Debridement and rearrangement of Alloderm Sheets Implants: [place] Round Smooth Moderate Plus Profile 700cc Surgeon: J Luis Burciaga Anesthesia: General Specimens Removed: Debrided Alloderm Operative Report Dictated: Yes
[2017-08-27] MEDS ORDERED: ONDANSETRON 4 MG/2 ML VIAL ONE (11:41)
--- NOTE | 2017-08-27 11:56 | OP ---
DATE OF OPERATION: 08/27/2017 PREOPERATIVE DIAGNOSIS: Patient dissatisfaction with breast shape after bilateral post-mastectomy breast reconstruction. POSTOPERATIVE DIAGNOSIS: Patient dissatisfaction with breast shape after bilateral post-mastectomy breast reconstruction. PRECEDURE PERFORMED: Bilateral breast reconstruction revision, exchange of breast prostheses, debridement and rearrangement of AlloDerm sheets. SURGEON: J Luis Patrick MD ANESTHESIA: General via endotracheal tube. BRIEF HISTORY: The patient is status post bilateral staged nipple-sparing mastectomies with subsequent reconstruction using over-muscle immediate breast reconstruction with AlloDerm wrapped implants. Postoperatively, the patient feels like there has been significant descent of the implants and feels that the implants are small for her size. There is almost no fullness in the upper pole of the breast, which the patient wants addressed. DESCRIPTION OF PROCEDURE: The patient was on the operating table in the supine position, and general anesthesia was administered by the anesthesiologist. The area of the chest was prepped and draped in the usual sterile fashion. The right breast was addressed first. An inframammary incision was made approximately 10 cm in length, and dissection was carried down through subcutaneous tissues using electrocautery. The AlloDerm was identified and divided, exposing the implant beneath. The implant was removed without difficulty, and there was a small seroma about the implant. This was drained as well. A Fiber Optic lighted retractor was used to expand the pocket superiorly, and a segment of AlloDerm was undermined and excised near the inframammary fold to elevate the implant and secure it at this level. A new implant was brought onto the field, which was a [place] Round Smooth Moderate Plus Profile Implant 700 mL in size. The implant pocket was irrigated with a solution of dilute Betadine, and the implant was inserted with the assistance of a Hua Funnel. The AlloDerm was again undermined and sutured in a superiorly advanced position using 2-0 Vicryl suture in interrupted and continuous fashion. The wound was then closed in layered fashion. Deep tissues were closed with No. 3-0 and 4-0 Biosyn suture in interrupted buried fashion, a deep dermal layer of 4-0 V-Loc 90 was used for skin. The wound was further secured with Steri-Strips. A similar procedure was performed on the left breast and a similar sized and style implant was used. Sterile dressings were then applied and secured with a surgical bra. The patient was awoken from anesthesia without any difficulty and taken from the operating room to the recovery room in satisfactory condition having tolerated the procedure well. J LUIS PATRICK M.D. [id number]
[2017-08-27 11:58] VITALS: TEMP 98.3
[2017-08-27 12:06] VITALS: PULSE 71
[2017-08-27] MEDS ORDERED: oxyCODONE HCL 5 MG TABLET ONE (12:31)
[2017-08-27 13:47] VITALS: BP 132/72
--- NOTE | 2017-09-01 14:20 | PATH ---
Surgical Pathology Report Patient Name: SHABBIR LIVINGSTON [facility]. Rec. #: [id number] /Age/Gender: 1970 (Age: 47) / F Account: [id number] Location: [facility] Taken: 08/27/2017 Received: 08/27/2017 Reported: 09/01/2017 Physicians: J Luis Burciaga M.D. Specimen(s) Received A: RIGHT BREAST IMPLANT B: LEFT BREAST IMPLANT C: DEBRIDED TISSUE RIGHT BREAST D: DEBRIDED TISSUE LEFT BREAST Clinical History Breast cancer Final Diagnosis A. RIGHT BREAST, IMPLANT, REMOVAL: CONSISTENT WITH BREAST IMPLANT. GROSS EXAMINATION ONLY. B. LEFT BREAST, IMPLANT, REMOVAL: CONSISTENT WITH BREAST IMPLANT. GROSS EXAMINATION ONLY. C. RIGHT BREAST, DEBRIDED TISSUE, EXCISION: FIBROADIPOSE TISSUE WITH FIBROSIS AND FOCAL HISTIOCYTIC REACTION INCLUDING MULTINUCLEATED GIANT CELLS. D. LEFT BREAST, DEBRIDED TISSUE, EXCISION: FIBROADIPOSE TISSUE WITH FIBROSIS AND CLUSTERS OF MULTINUCLEATED GIANT CELLS IN ASSOCIATION WITH FOREIGN MATERIAL. Electronically Signed Anuradha Russell M.D. Gross Description A. Received fresh labeled "right breast implant," is a 13.5 x 13.0 x 6.0 cm clear, rubbery breast implant. No soft tissue is present. No sections are submitted, gross only. B. Received fresh labeled "left breast implant," is a 13.5 x 13.0 x 6.0 cm clear, rubbery breast implant. No soft tissue is present. No sections are submitted, gross only. C. Received in formalin labeled "debrided tissue right breast," is a 7.5 x 1.7 x 0.8 cm oneil, irregular portion of firm fibrous tissue, consistent with a fibrous capsule. No discrete masses are identified. Client Project Coordinator sections are submitted in one cassette. D. Received in formalin labeled "debrided tissue left breast," is a 4.8 x 2.1 x 0.3 cm oneil, irregular portion of firm fibrous tissue, consistent with a fibrous capsule. Also received within the same container is a 2.2 x 1.1 x 0.6 cm portion of yellow, lobulated adipose tissue. No discrete masses are identified. Client Project Coordinator sections are submitted in one cassette. 08/28/2017 saudi08/28/2017
== END 2017-08-27 13:45 | disposition home or self-care (01) ==
LOC: JASU-SURG 05:16
PROVIDERS: ATTEND Plastic Surgery
PROC: 0HWU0JZ Revision of Synthetic Substitute in Left Breast, Open Approach (ICD-10-PCS; principal; 2017-08-27 08:00)
PROC: 0HWT0JZ Revision of Synthetic Substitute in Right Breast, Open Approach (ICD-10-PCS; 2017-08-27 08:00)
DX: N65.1 Disproportion of reconstructed breast (principal)
CPT/HCPCS: 84703; 88300-TC; 88304-TC; 94760

== ENCOUNTER 2017-10-29 07:55 | Day surgery (SDC) | payer OTHER ==
[2017-10-29 08:36] VITALS: BMI 38.4
[2017-10-29] MEDS ORDERED: PROPOFOL 20 ML ONE ×3 (08:40)
[2017-10-29] MEDS ORDERED: METOCLOPRAMIDE HCL INJECTION 10 MG/2 ML VIAL ONE (08:40)
--- NOTE | 2017-10-29 08:49 | PROC ---
Endoscopy Procedure Endoscopy procedure completed. Please see scanned procedure report.
[2017-10-29 15:45] VITALS: BP 128/71; PULSE 58; TEMP 98.4
--- NOTE | 2017-10-30 14:26 | PATH ---
Surgical Pathology Report Patient Name: SHABBIR LIVINGSTON [facility]. Rec. #: [id number] /Age/Gender: 1970 (Age: 47) / F Account: [id number] Location: U-ENDOSCOPY Taken: 10/29/2017 Received: 10/29/2017 Reported: 10/30/2017 Physicians: Evan Conde M.D. Specimen(s) Received A: BX DUODENUM 2ND PORTION B: BX STOMACH EROSIVE GASTRITIS C: BX GE JUNCTION D: POLYP SIGMOID Clinical History GERD, colon screening Postoperative diagnosis: Erosive gastritis, colon polyp, colon diverticulum Final Diagnosis A. DUODENUM, SECOND PORTION, BIOPSY: DUODENAL MUCOSA WITHOUT SIGNIFICANT PATHOLOGIC FINDINGS. B. STOMACH, BIOPSY: GASTRIC ANTRAL MUCOSA WITH MILD CHRONIC GASTRITIS. IMMUNOHISTOCHEMICAL STAIN FOR H. PYLORI IS NEGATIVE. C. EG JUNCTION, BIOPSY: SQUAMOCOLUMNAR MUCOSA WITH MILD CHRONIC INFLAMMATION AND CHANGES OF MILD REFLUX ESOPHAGITIS. NO INTESTINAL METAPLASIA OR DYSPLASIA IDENTIFIED. D. SIGMOID COLON, POLYP BIOPSY: HYPERPLASTIC POLYP. Electronically Signed Mamie Osborne M.D. Gross Description A. Received in formalin, labeled "biopsy second portion of duodenum" is a oneil, irregular portion of soft tissue measuring 0.5 cm. in greatest dimension. The specimen is submitted in toto in one cassette. B. Received in formalin, labeled "biopsy erosive gastritis" are 3 oneil, irregular portions of soft tissue ranging from 0.1-0.4 cm. in greatest dimension. The specimens are submitted in toto in one cassette. C. Received in formalin, labeled "biopsy EG junction" are 2 oneil, irregular portions of soft tissue measuring 0.4 and 0.6 cm. in greatest dimension. The specimens are submitted in toto in one cassette. D. Received in formalin, labeled "biopsy sigmoid polyp" are 2 oneil, irregular portions of soft tissue measuring 0.3 and 0.4 cm. in greatest dimension. The specimens are submitted in toto in one cassette. 10/29/201710/29/2017
== END 2017-10-29 11:30 | disposition home or self-care (01) ==
LOC: JASU-ENDO 07:55
PROVIDERS: ATTEND Internal Medicine Gastroenterology
PROC: 0DB98ZX Excision of Duodenum, Via Natural or Artificial Opening Endoscopic, Diagnostic (ICD-10-PCS; 2017-10-29)
PROC: 0DB68ZX Excision of Stomach, Via Natural or Artificial Opening Endoscopic, Diagnostic (ICD-10-PCS; 2017-10-29)
PROC: 0DB38ZX Excision of Lower Esophagus, Via Natural or Artificial Opening Endoscopic, Diagnostic (ICD-10-PCS; 2017-10-29)
PROC: 0DBN8ZX Excision of Sigmoid Colon, Via Natural or Artificial Opening Endoscopic, Diagnostic (ICD-10-PCS; principal; 2017-10-29 08:30)
DX: Z12.11 Encounter for screening for malignant neoplasm of colon (principal); D12.5 Benign neoplasm of sigmoid colon; K20.8 Other esophagitis; K25.9 Gastric ulcer, unspecified as acute or chronic, without hemorrhage or perforation
CPT/HCPCS: 84703; 88305-TC; 88342-TC

== ENCOUNTER 2018-03-17 10:45 | Emergency (ER) | payer OTHER ==
[2018-03-17 10:59] VITALS: BMI 38.0
[2018-03-17] MEDS ORDERED: diazePAM 5 MG TABLET PO ONE ×2 (11:51→15:30)
--- NOTE | 2018-03-17 11:57 | PDOC ---
History of Present Illness - General Chief Complaint: Palpitations Stated Complaint: CHEST PAIN Time Seen by Provider: 03/17/18 11:03 - History of Present Illness Initial Comments: 03/17/18 11:51 The patient is a 47 year old female with a significant past medical history of breast ca s/p mastectomy, hypothyroidism, and panic attacks who presents to the emergency department with heart palpitations for 5 days. The patient reports that she recently flew back from [facility] (5 hour flight) on Thursday (days ago) . During the flight, she experienced a panic attack, stating that she felt her heart racing and pressure in her chest. She states that these symptoms are consistent with her previous panic attacks. However, the patient reports that her usual panic attacks last about 20 minutes. These usually resolve either spontaneously or with Xanax. Pt states that she took a xanax at onset of her symptoms with temporary relief, but her palpitations and chest pressure have persisted. She states that she feels like she is still having a panic attack. Pt denies any F/C. Denies cough. Denies unilateral leg swelling. No OCP use. No h/o DVT/PE. Past History - Past Medical History Allergies/Adverse Reactions: Allergies Allergy/AdvReac Type Severity Reaction Status Date / Time No Known Drug Allergies Allergy Verified 03/17/18 10:57 Home Medications: Ambulatory Orders Levothyroxine [Synthroid -] 125 mcg PO DAILY 04/17/14 Tamoxifen Citrate 20 mg PO HS 08/25/17 Anemia: No Asthma: Yes (as a child) Cancer: Yes (breast) Cardiac Disorders: Yes ("SLIGHT MITRAL VALVE PROLAPSE") CVA: No COPD: No CHF: No Dementia: No Diabetes: No GI Disorders: Yes (ACID REFLUX) Disorders: No HTN: No Hypercholesterolemia: No Liver Disease: No Seizures: No Thyroid Disease: Yes (HYPO) - Surgical History Abdominal Surgery: No Appendectomy: No Cardiac Surgery: No Cholecystectomy: No Lung Surgery: No Neurologic Surgery: Yes (TUMOR REMOVED (BENIGN) 3 YRS AGO [facility] 8YRS AGO) Orthopedic Surgery: No - Immunization History Immunization Up to Date: Yes - Suicide/Smoking/Psychosocial Hx Smoking History: Never smoked Have you smoked in the past 12 months: No If you are a former smoker, when did you quit?: 20YRS AGO Hx Alcohol Use: Yes (occ) Drug/Substance Use Hx: No Substance Use Type: Alcohol Hx Substance Use Treatment: No Cardiac Specific PMH - Complaint Specific PMHX Pacemaker: No Review of Systems - Review of Systems Comments:: 03/17/18 11:55 "GENERAL/CONSTITUTIONAL: No fever or chills. No weakness. HEAD, EYES, EARS, NOSE AND THROAT: No change in vision. No ear pain or discharge. No sore throat. CARDIOVASCULAR: + chest pressure, + palpitations, no shortness of breath, no loss of consciousness RESPIRATORY: No cough, wheezing, or hemoptysis. GASTROINTESTINAL: No nausea, vomiting, diarrhea or constipation. GENITOURINARY: No dysuria, frequency, or change in urination. MUSCULOSKELETAL: No joint or muscle swelling or pain. No neck or back pain. SKIN: No rash NEUROLOGIC: No vertigo, no change in strength/sensation. ENDOCRINE: No increased thirst. No abnormal weight change. HEMATOLOGIC/LYMPHATIC: No anemia, easy bleeding, or history of blood clots. ALLERGIC/IMMUNOLOGIC: No hives or skin allergy. *Physical Exam - Vital Signs Last Vital Signs Temp Pulse Resp BP Pulse Ox 98.0 F 77 18 134/76 99 03/17/18 16:52 03/17/18 16:52 03/17/18 16:52 03/17/18 16:52 03/17/18 16:52 - Physical Exam Comments: 03/17/18 11:55 "GENERAL: Awake, alert, and fully oriented, in no acute distress. HEAD: No signs of trauma EYES: PERRLA, EOMI, sclera anicteric, conjunctiva clear ENT: Auricles normal inspection, hearing grossly normal, nares patent, oropharynx clear without exudates. Moist mucosa NECK: Nontender, no stepoffs, Normal ROM, supple, no lymphadenopathy, JVD, or masses LUNGS: Breath sounds equal, clear to auscultation bilaterally. No wheezes, and no crackles HEART: Regular rate and rhythm, normal S1 and S2, no murmurs, rubs or gallops ABDOMEN: Soft, nontender, normoactive bowel sounds. No guarding, no rebound. No masses EXTREMITIES: Normal range of motion, no edema. No clubbing or cyanosis. No cords, erythema, or tenderness NEUROLOGICAL: Cranial nerves II through XII intact. 5/5 strength and sensation in all extremities, Normal speech, normal gait, normal cerebellar function SKIN: Warm, Dry, normal turgor, no rashes or lesions noted. Heart Score/ECG Review - History History: Slightly suspicious - Electrocardiogram EKG: Normal - Age Age: 45-65 - Risk Factors Risk Factors Heart Score: Yes Positive family hx of cardiac disease Based on the list above the patient has:: 1-2 risk factors - Troponin Troponin: </= normal limit - Score Heart Score - Total: 2 - ECG Impressions Comment:: 03/17/18 11:56 NSR, no SHAYLEE/STDs, no TWIs, axis wnl, intervals wnl, rate 68 Moderate Sedation - Procedure Monitoring Vital Signs: Procedure Monitoring Vital Signs Temperature 98.0 F 03/17/18 16:52 Pulse Rate 77 03/17/18 16:52 Respiratory Rate 18 03/17/18 16:52 Blood Pressure 134/76 03/17/18 16:52 O2 Sat by Pulse Oximetry (%) 99 03/17/18 16:52 ED Treatment Course - LABORATORY CBC & Chemistry Diagram: 03/17/18 12:10 03/17/18 12:10 - ADDITIONAL ORDERS Additional order review: Laboratory Results 03/17/18 03/17/18 03/17/18 12:10 12:10 12:10 D-Dimer 669 H Sodium 141 Potassium 4.2 Chloride 110 H Carbon Dioxide 25 Anion Gap 6 L BUN 18 Creatinine 0.9 Creat Clearance w eGFR > 60 Random Glucose 84 Calcium 9.0 Total Bilirubin 0.3 AST 21 ALT 26 Alkaline Phosphatase 69 Creatine Kinase 86 Troponin I < 0.02 Total Protein 7.8 Albumin 3.5 TSH 0.21 L Urine HCG, Qual Negative 03/17/18 12:10 D-Dimer Sodium Potassium Chloride Carbon Dioxide Anion Gap BUN Creatinine Creat Clearance w eGFR Random Glucose Calcium Total Bilirubin AST ALT Alkaline Phosphatase Creatine Kinase Cancelled Troponin I Cancelled Total Protein Albumin TSH Urine HCG, Qual 03/17/18 12:10 RBC 4.19 MCV 88.8 MCHC 34.5 RDW 14.2 MPV 8.2 Neutrophils % 62.6 Lymphocytes % 28.4 Monocytes % 7.1 Eosinophils % 0.9 Basophils % 1.0 - RADIOLOGY Radiology Studies Ordered: Category Date Time Status CHEST CTA [CT] Stat CT Scan 03/17/18 14:40 Completed CHEST PA & LAT [RAD] Stat Radiology 03/17/18 11:26 Completed - Medications Given in the ED: ED Medications Discontinued Medications Generic Name Dose Route Start Last Admin Trade Name Tess PRN Reason Stop Dose Admin Diazepam 5 mg 03/17/18 11:51 03/17/18 12:04 Valium - PO 03/17/18 11:52 5 mg ONCE ONE Administration Diazepam 5 mg 03/17/18 15:23 03/17/18 15:37 Valium Injection - IVPUSH 03/17/18 15:24 Not Given ONCE ONE Diazepam 5 mg 03/17/18 15:30 03/17/18 15:36 Valium - PO 03/17/18 15:31 5 mg ONCE ONE Administration Medical Decision Making - Medical Decision Making 03/17/18 11:56 47 F with no palpitations and chest pressure, likely 2/2 anxiety/panic disorder. Pt with normal EKG, no evidence of arrhythmia. No evidence of ischemia. Pt has no clinical s/s DVT but will r/o with ddimer given recent flight. - Labs, trop, ddimer - CXR - Valium 03/17/18 14:41 D dimer elevated >600 Labs otherwise wnl CXR clear Will obtain CTA to r/o PE 03/17/18 18:10 CTA negative Pt reassessed - feels much better s/p valium Pt is well appearing, with normal vitals. Clinically stable for DC at this time. I discussed the physical exam findings, ancillary test results and final diagnoses with the patient. I answered all of the patient's questions. The patient was satisfied with the care received and felt comfortable with the discharge plan and treatment plan. The patient agrees to follow up with the primary care physician within 24-72 hours. *DC/Admit/Observation/Transfer Diagnosis at time of Disposition: Palpitations - Discharge Dispostion Disposition: HOME - Referrals Referrals: Sarah Schaefer MD [Primary Care Provider] - - Patient Instructions Printed Discharge Instructions: DI for Palpitations Additional Instructions: Your bloodwork and CT scan were normal. If you experience worsening chest pain, palpitations, or any other concerning symptoms, return to the ER immediately. Otherwise, follow up with your primary doctor for further evaluation. You should also see a drum straightener for additional testing. - Post Discharge Activity - Attestations Physician Attestion: 03/17/18 18:11 I, Dr. Severino Leslie MD, attest that this document has been prepared under my direction and personally reviewed by me in its entirety. I further attest, that it accurately reflects all work, treatment, procedures and medical decision -making performed by me.
[2018-03-17] MEDS ORDERED: diazePAM 5 MG TABLET ONE ×3 (12:03→15:28)
[2018-03-17 12:25] LABS: EOS % 0.9 % (0-4.5); HEMATOCRIT 37.2 % (32.4-45.2); HEMOGLOBIN 12.8 GM/dL (10.7-15.3); LYMPH % 28.4 % (8-40); MCH 30.6 pg (25.7-33.7); MCHC 34.5 g/dl (32.0-36.0); MEAN CELL VOLUME 88.8 fl (80-96); MEAN PLT VOLUME 8.2 fl (7.5-11.1); MONO % 7.1 % (3.8-10.2); NEUT % 62.6 % (42.8-82.8); PLATELET COUNT 281 K/MM3 (134-434); RBC 4.19 M/mm3 (3.60-5.2); RDW 14.2 % (11.6-15.6); WHITE BLOOD COUNT 5.5 K/mm3 (4.0-10.0)
[2018-03-17 12:58] LABS: ALBUMIN 3.5 g/dl (3.4-5.0); ALK PHOS 69 U/L (45-117); ANION GAP 6 MMOL/L (8-16); BILIRUBIN,TOTAL 0.3 mg/dL (0.2-1); BLOOD UREA NITROGEN 18 mg/dL (7-18); CHLORIDE 110 mmol/L (98-107); CO2 25 mmol/L (21-32); CREATININE 0.9 mg/dL (0.55-1.3); GLUCOSE,RANDOM 84 mg/dL (74-106); POTASSIUM 4.2 mmol/L (3.5-5.1); SGOT/AST 21 U/L (15-37); SGPT/ALT 26 U/L (13-61); SODIUM 141 mmol/L (136-145); TOT PROT 7.8 g/dl (6.4-8.2)
[2018-03-17] MEDS ORDERED: diazePAM CARPU-JECT 10 MG/2 ML DISP.SYRIN IVPUSH ONE (15:23)
[2018-03-17 16:53] VITALS: BP 134/76; PULSE 77; TEMP 98
--- NOTE | 2018-03-18 10:29 | EKG ---
Test Reason : Blood Pressure : / mmHG Vent. Rate : 068 BPM Atrial Rate : 068 BPM P-R Int : 146 ms QRS Dur : 086 ms QT Int : 424 ms P-R-T Axes : 023 -01 031 degrees QTc Int : 450 ms NORMAL SINUS RHYTHM NORMAL ECG WHEN COMPARED WITH ECG OF 17-APR-2014 10:21, NO SIGNIFICANT CHANGE WAS FOUND Confirmed by JAZMINE VALENTINE MD ([id number]) on 03/18/2018 10:29:18 AM Referred By: Confirmed By:JAZMINE VALENTINE MD
== END 2018-03-17 18:20 | disposition home or self-care (01) ==
LOC: JER 10:45
DX: R00.2 Palpitations (principal); E03.9 Hypothyroidism, unspecified; F41.0 Panic disorder [episodic paroxysmal anxiety]; Z85.3 Personal history of malignant neoplasm of breast; Z90.10 Acquired absence of unspecified breast and nipple
CPT/HCPCS: 36415; 71046-TC-FY; 71275-TC; 80053; 82550; 84443; 84484; 84703; 85025; 85379; 93005; 93010; 99283-25

== ENCOUNTER 2018-09-15 13:09 | Emergency (ER) | payer OTHER | END 2018-09-15 16:46 | LOC: JER 13:09 ==

== ENCOUNTER 2019-01-07 08:05 | Day surgery (SDC) | payer OTHER ==
[2019-01-06 16:36] VITALS: BMI 39.3
[2019-01-07] MEDS ORDERED: LIDOCAINE HCL 1%, 10 MG/ML (20ML VIAL) ONE (08:15)
[2019-01-07] MEDS ORDERED: PROPOFOL 20 ML ONE (10:13)
[2019-01-07] MEDS ORDERED: MIDAZOLAM HCL 2 MG/2 ML SINGLE DOSE VIAL ONE (10:13)
[2019-01-07] MEDS ORDERED: LIDOCAINE HCL/PF 2% SDV 5ML VIAL ONE (10:24)
[2019-01-07] MEDS ORDERED: ceFAZolin SODIUM 1 GM VIAL ONE (10:25)
[2019-01-07] MEDS ORDERED: SODIUM CHLORIDE 0.9% P/F 10 ML VIAL IJ ONE (10:25)
[2019-01-07] MEDS ORDERED: ceFAZolin SODIUM 1 GM VIAL IVPB ONE (10:26)
[2019-01-07] MEDS ORDERED: LIDOCAINE HCL 1%, 10 MG/ML (20ML VIAL) INF ONE ×2 (10:37)
[2019-01-07] MEDS ORDERED: PROMETHAZINE HCL 25 MG/1 ML VIAL IVPUSH PRN (10:56)
[2019-01-07] MEDS ORDERED: ONDANSETRON 4 MG/2 ML VIAL IVPUSH PRN (10:56)
[2019-01-07] MEDS ORDERED: LACTATED RINGERS SOLUTION 1,000 ML IV SCH (11:00)
[2019-01-07 11:40] VITALS: TEMP 98.1
--- NOTE | 2019-01-07 12:09 | OP ---
DATE OF OPERATION: 01/07/2019 PREOPERATIVE DIAGNOSIS: Right breast chest wall mass. POSTOPERATIVE DIAGNOSIS: Right breast chest wall mass. PROCEDURE: Excision of right chest wall mass. SURGEON: Caroline Streeter MD ANESTHESIA: Local IV sedation, Luigi Hinton MD ESTIMATED BLOOD LOSS: Minimal. COMPLICATIONS: None. This was a sterile procedure. INDICATIONS: Patient had a bilateral nipple-sparing mastectomy. Did not do any adjuvant treatment who presented with a palpable mass in the right chest wall in the 11 to 11:30 location 6 cm from the nipple. This appeared very firm and irregular on ultrasound. However, my recommendation was an excision of this for pathologic analysis. The procedure was discussed local, IV sedation, and her questions answered. PROCEDURE IN DETAIL: The patient was brought to [facility] in [place], taken into the operating room. After IV sedation, IV antibiotics, the right chest wall was prepped and draped in the usual sterile fashion. The area over the palpable mass in the right 11 to 11:30 location 6 cm from the nipple was anesthetized with 1% lidocaine without epinephrine. An ellipse of skin was taken to include the skin overlying this mass, which had a tiny little skin nodule as well. This was excised en bloc and tagged with a long stitch lateral, short stitch superior, sent as excision of right chest wall mass. Upon doing this, this seemed to be stuck to the Alloderm. I made a tiny hole in the Alloderm, which I secured together with a Vicryl stitch. The implant appeared intact. Once this was removed, hemostasis was assured with electrocautery and the parenchyma approximated with interrupted 3-0 Vicryl, skin approximated with interrupted 3-0 Vicryl, running 4-0 Biosyn. A sterile dressing with Tegaderm and 4 x 4 was applied. She tolerated the procedure well, was taken to recovery in good condition. CAROLIEN STREETER M.D. [id number]
[2019-01-07 12:21] VITALS: BP 141/79; PULSE 64
--- NOTE | 2019-01-11 11:08 | PATH ---
Surgical Pathology Report Patient Name: SHABBIR LIVINGSTON [facility]. Rec. #: [id number] /Age/Gender: 1970 (Age: 48) / F Account: [id number] Location: [facility] SURGICAL Taken: 01/07/2019 Received: 01/07/2019 Reported: 01/11/2019 Physicians: Caroline Duong M.D. Specimen(s) Received CHEST WALL MASS Clinical History Right chest wall mass Final Diagnosis CHEST WALL MASS, RIGHT, EXCISION: RECURRENT INVASIVE DUCTAL CARCINOMA, MODERATELY DIFFERENTIATED. TUMOR MEASURES 9 MM IN GREATEST MICROSCOPIC DIMENSION. TUMOR INFILTRATES UNDERLYING DERMIS. NO LYMPHOVASCULAR INVASION IDENTIFIED. INVASIVE CARCINOMA INVOLVES INFERIOR MARGIN, 1 MM FROM POSTERIOR MARGIN AND <1 MM FROM MEDIAL, LATERAL, AND SUPERIOR MARGINS. SEE COMMENT. Results of Estrogen Receptor (ER) and Progesterone Receptor (AK) studies performed on block "4" at [facility] are as follows: ER (clone [id number] mouse monoclonal antibody by [employer]): ~70% nuclear staining with moderate intensity (Positive). AK (clone16 mouse monoclonal antibody by [employer]): ~65% nuclear staining with strong intensity (Positive). Comment: Immunohistochemical stain performed and interpreted at [facility] show the tumor is positive for E-Cadherin, supportive of ductal phenotype. Her2 and Ki-67 studies are pending and will be reported separately. Prior history of right breast invasive ductal carcinoma noted. Findings discussed with Dr. Duong. Positive and negative controls (internal if applicable) show appropriate results. Formalin fixation and cold ischemic times are within current ASCO/CAP recommendations for ER, AK and Her2 testing. MLSZ/01/11/2019 Electronically Signed Mamie Osborne M.D. Addendum Reported: 01/14/2019 Addendum Diagnosis Results of Her2 (IHC) & Ki-67 studies performed and interpreted on block "4" at [place], [place] ([id number]) are as follows: Her2 IHC (EP3 from [employer], formerly known as [id number], using [employer] Polymer Refine detection kit): 1+ (Negative). Ki-67: ~4% (Low proliferative index) Positive and negative controls (internal if applicable) show appropriate results. Mamie Osborne M.D. Gross Description Received in formalin labeled "right chest wall mass" is an irregular piece of yellow fibroadipose tissue measuring 2 x 2 x 1.5 cm. There is a skin ellipse overlying the surface of the specimen which measures 2 x 1 cm. There is a short suture marking the superior aspect and a long suture marking the lateral aspect, per the surgeon. The specimen is inked as follows: superior and lateral blue; inferior green; medial yellow; posterior-black. Anterior aspect-skin. The specimen is serially sectioned from medial to lateral. Sectioning reveals an ill-defined, white fibrous lesion measuring 0.9 x 0.5 x 0.4 cm, focally abutting the inferior and posterior margins, and 0.2 cm from superior margin. Entire specimen is sequentially submitted in 6 cassettes as follows: 1- medial margin, 2-5- lesion with skin, inferior, superior, and inferior margins, 6- lateral margin. CAMILLAZ/01/07/2019 [email or web address]/01/07/2019
== END 2019-01-07 12:30 | disposition home or self-care (01) ==
LOC: JASU-SURG 08:05
PROVIDERS: ATTEND Surgery
PROC: 0HBT0ZX Excision of Right Breast, Open Approach, Diagnostic (ICD-10-PCS; principal; 2019-01-07 10:00)
DX: C50.411 Malignant neoplasm of upper-outer quadrant of right female breast (principal); Z17.0 Estrogen receptor positive status [ER+]; N63.11 Unspecified lump in the right breast, upper outer quadrant
CPT/HCPCS: 84703; 88307-TC; 88342-TC; 94760

== ENCOUNTER 2019-01-21 07:20 | Day surgery (SDC) | payer OTHER ==
[2019-01-20 13:59] VITALS: BMI 38.4
[2019-01-21] MEDS ORDERED: SCOPOLAMINE HYDROBROMIDE 1 PATCH PATCH.TD72 ONE (08:29)
[2019-01-21] MEDS ORDERED: SCOPOLAMINE HYDROBROMIDE 1 PATCH PATCH.TD72 TD ONE (08:38)
[2019-01-21] MEDS ORDERED: PROPOFOL 20 ML ONE ×2 (09:24)
[2019-01-21] MEDS ORDERED: MIDAZOLAM HCL 2 MG/2 ML SINGLE DOSE VIAL ONE (09:31)
[2019-01-21] MEDS ORDERED: KETOROLAC TROMETHAMINE 30 MG/1 ML VIAL ONE (09:31)
[2019-01-21] MEDS ORDERED: DEXAMETHASONE SOD PHOSPHATE 4 MG/1 ML VIAL ONE (09:31)
[2019-01-21] MEDS ORDERED: ceFAZolin SODIUM 1 GM VIAL ONE (09:50)
[2019-01-21] MEDS ORDERED: ceFAZolin SODIUM 1 GM VIAL IVPB ONE (09:52)
[2019-01-21] MEDS ORDERED: LIDOCAINE HCL 1%, 10 MG/ML (20ML VIAL) NR ONE ×2 (09:57)
[2019-01-21] MEDS ORDERED: ePHEDrine SULFATE 50 MG/1 ML AMPULE ONE ×2 (10:08→10:09)
[2019-01-21] MEDS ORDERED: BACITRACIN 15 GM TUBE TOPICAL OINTMENT ONE (10:18)
[2019-01-21] MEDS ORDERED: BACITRACIN 15 GM TUBE TOPICAL OINTMENT TP ONE (10:22)
--- NOTE | 2019-01-21 10:53 | HP ---
History & Physical Update - History History: No Change - Physical Physical: No Change - Assessment Assessment: No Change - Plan Plan: No Change
[2019-01-21] MEDS ORDERED: ONDANSETRON 4 MG/2 ML VIAL IVPUSH PRN (11:27)
[2019-01-21] MEDS ORDERED: LACTATED RINGERS SOLUTION 1,000 ML IV SCH (11:30)
[2019-01-21 12:02] VITALS: TEMP 98
--- NOTE | 2019-01-21 13:01 | OP ---
DATE OF OPERATION: 01/21/2019 PREOPERATIVE DIAGNOSIS: Right chest wall recurrence of breast cancer. POSTOPERATIVE DIAGNOSIS: Right chest wall recurrence of breast cancer. PROCEDURE: Right chest wall re-excision. SURGEON: Caroline Streeter MD ANESTHESIA: General. ESTIMATED BLOOD LOSS: Minimal. COMPLICATIONS: None. This is a sterile procedure. INDICATIONS: Patient had a bilateral nipple-sparing mastectomy. Had presented with a chest wall mass, which I excised. Came back as a 9-mm invasive carcinoma with positive and close margins; therefore, my recommendation was a re-excision of those margins. Procedure was discussed with all of the questions answered. PROCEDURE IN DETAIL: Patient was brought to [facility] in [place]. Taken into the operating room and after induction of general anesthesia and IV antibiotics, the right chest wall was prepped and draped in the usual sterile fashion. The area of the prior incision in the upper outer right breast was anesthetized with 1% lidocaine without epinephrine, and the prior incision was sharply re-opened. In that location, essentially there is just an implant with a slight bit of tissue overlying this. I then did a re-excision lumpectomy all around to include a superior, medial, lateral, and inferior margin. This was tagged with a long stitch lateral, short stitch superior. Sent as a right breast re-excision of chest wall cancer. I also then took a new inferior margin with a stitch at the old margin as inferiorly I seemed to have less tissue on re-excision. This was sent to Pathology for permanent second. Hemostasis was assured with electrocautery. There was not really much tissue overlying the implant in this location, though the implant was intact. Once this was completed, the skin was approximated using interrupted 3-0 Vicryl, running 4-0 Biosyn. Bacitracin was applied to the incision then dressings of Tegaderm and 4 x 4 were applied. She tolerated the procedure well, was extubated on the operating room table, taken to recovery in good condition. CAROLINE STREETER M.D. [id number]
[2019-01-21 15:13] VITALS: BP 120/60; PULSE 74
--- NOTE | 2019-01-26 14:33 | PATH ---
Surgical Pathology Report Patient Name: SHABBIR LIVINGSTON [facility]. Rec. #: [id number] /Age/Gender: 1970 (Age: 48) / F Account: [id number] Location: [facility] SURGICAL Taken: 01/21/2019 Received: 01/21/2019 Reported: 01/26/2019 Physicians: Caroline Duong M.D. Specimen(s) Received A: RIGHT CHEST WALL RE-EXCISION LUMPECTOMY B: RIGHT NEW INFERIOR MARGIN Clinical History Breast cancer Final Diagnosis A. CHEST WALL, RIGHT, RE-EXCISION LUMPECTOMY: BENIGN FIBROADIPOSE TISSUE WITH MARKED CHRONIC INFLAMMATION, HISTIOCYTIC INFILTRATE, AND FOREIGN BODY GIANT CELL REACTION CONSISTENT WITH CHANGES OF PRIOR PROCEDURE. B. NEW INFERIOR MARGIN, RIGHT, EXCISION: BENIGN FIBROADIPOSE TISSUE. Electronically Signed Mamie Osborne M.D. Gross Description A. Received in formalin labeled "right chest wall reexcision lumpectomy is an 11 g, 5 x 3.5 x 1.2 cm oneil-yellow, irregular, portion of fibroadipose tissue with open biopsy cavity. There is a short suture marking the superior aspect and a long suture marking the lateral aspect, per the surgeon. There is no skin or nipple present. The specimen is inked as follows: superior and lateral blue; inferior green; medial yellow; anterior red; deep black. The specimen is serially sectioned from lateral to medial. Sectioning reveals a 3 x 1 x 1.5 open biopsy cavity, 0.5 cm from anterior margin, 1 cm from medial, lateral, and posterior margin, and traversing superior and inferior margins. Sectioning is fibrofatty with firm and nodular areas within the biopsy region. The specimen is entirely and sequentially submitted in 8 cassettes: 1- medial/superior inferior margins, 4- anterior margin/superior inferior; 8- lateral/superior margin. Total formalin fixation time: Approximately 7-8 hours B. Received in formalin labeled "new inferior margin" is a 4 x 2.5 x 0.8 cm portion of fibroadipose tissue with a suture marking old margin, per surgeon. The opposite side/new margin is inked in blue and the specimen is a resection. Specimen is entirely submitted in 3 cassettes. MLSZ/01/21/2019 sanml/01/21/2019
== END 2019-01-21 13:20 | disposition home or self-care (01) ==
LOC: JASU-SURG 07:20
PROVIDERS: ATTEND Surgery
PROC: 0HBT0ZZ Excision of Right Breast, Open Approach (ICD-10-PCS; principal; 2019-01-21 09:00)
DX: C50.911 Malignant neoplasm of unspecified site of right female breast (principal)
CPT/HCPCS: 84703; 88307-TC; 94760